=== PATIENT | female | born 1985 | race Caucasian/White ===

== ENCOUNTER → 2018-01-20 13:34 | Outpatient (CLI) | payer MEDICAID, SELFPAY ==
[2018-01-20 16:11] LABS: Hematocrit 35.3 % (37-47); Hemoglobin 11.8 g/dl (12.0-15.0); Mean Corp Hgb Conc 33.4 g/gl (32-36); Mean Corpuscular Hgb 31.6 pg (27.0-32.0); Mean Corpuscular Volume 94.4 fL (81-99); Mean Platelet Vol. 11.6 fl (6.2-12.0); Platelet Count 205 K/mm3 (150-450); RBC Distribution Width CV 12.9 % (11.6-14.6); RBC Distribution Width SD 44.5 fl (35.1-43.9); Red Blood Count 3.74 M/mm3 (4.2-5.4)
[2018-01-20 16:13] LABS: Scan Indicated on CBC? Y/N NO
[2018-01-20 16:18] LABS: Glucose Challenge Gest 1H 50g 115 mg/dL (70-140)
== END ==
PROVIDERS: Visit Provider Obstetrics & Gynecology
DX: Z34.83 Encounter for supervision of other normal pregnancy, third trimester (principal)
CPT/HCPCS: 36415; 82950; 85027